=== PATIENT | male | born 1970 | race Two or more races ===

== ENCOUNTER 2017-04-16 09:56 | Emergency (ER) | payer MEDICARE, MEDICAID ==
[~2017-04-16] VITALS: Ht 165.1 cm; Wt 68.0 kg
[2017-04-16 09:58] VITALS: BP 111/91
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
[2017-04-16] MEDS ORDERED: UNOBMED (10:24)
[2017-04-16] MEDS: Bacitracin Oint 15gm Tube TOPIC SCH ×2 (10:31→12:55)
[2017-04-16 10:34] LABS: BASOPHILS % (AUTO) 0.6 % (0.0-2.0); LYMPHOCYTES % (AUTO) 10.6 % (20.0-45.0); MEAN CORPUSCULAR HEMOGLOBIN 31.7 PG (27.0-31.0); MEAN CORPUSCULAR HGB CONC 33.5 G/DL (32.0-36.0); MEAN CORPUSCULAR VOLUME 95 FL (80-99); MEAN PLATELET VOLUME 5.9 FL (6.5-10.1); MONOCYTES % (AUTO) 6.9 % (1.0-10.0); NEUTROPHILS % (AUTO) 81.9 % (45.0-75.0); PLATELET COUNT 248 K/UL (150-450); RED BLOOD COUNT 4.54 M/UL (4.70-6.10); RED CELL DISTRIBUTION WIDTH 11.6 % (11.6-14.8); WHITE BLOOD COUNT 6.8 K/UL (4.8-10.8)
[2017-04-16 10:45] LABS: ALANINE AMINOTRANSFERASE 18 U/L (3-41); ALBUMIN/GLOBULIN RATIO 1.2 (1.0-2.7); ANION GAP 14 (5-15); ASPARTATE AMINO TRANSFERASE 28 U/L (5-40); CALCIUM 9.3 mg/dL (8.6-10.2); CARBON DIOXIDE 23 mEQ/L (20-30); CHLORIDE 102 mEQ/L (98-107); CREATININE 0.9 mg/dL (0.7-1.2); GLOMERULAR FILTRATION RATE > 60 mL/min (>60); HEMOLYSIS 12; POTASSIUM 3.8 mEQ/L (3.4-4.9); SODIUM 139 mEQ/L (135-145); TOTAL PROTEIN 7.6 g/dL (6.6-8.7)
[2017-04-16 11:08] VITALS: BP 112/80
[2017-04-16 12:07] VITALS: BP 122/81
[2017-04-16 13:40] VITALS: BP 125/84
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
[2017-04-16] MEDS ORDERED: ZYPREXA10 MG ORAL (14:31)
[2017-04-16 15:30] VITALS: BP 125/84
--- NOTE | 2017-04-17 16:14 | Cardiology Report ---
APPROVED REPORT EKG Measurement Heart [id number] Sinus tachycardia Possible Left atrial enlargement Borderline ECG
== END 2017-04-16 15:30 | disposition home or self-care (01) ==
LOC: EDBD 09:56 → EMR 10:29
DX: S41.112A Laceration without foreign body of left upper arm, initial encounter (principal); S41.111A Laceration without foreign body of right upper arm, initial encounter; F20.9 Schizophrenia, unspecified; E11.9 Type 2 diabetes mellitus without complications; I10 Essential (primary) hypertension; X78.9XXA Intentional self-harm by unspecified sharp object, initial encounter; Y92.049 Unspecified place in boarding-house as the place of occurrence of the external cause
CPT/HCPCS: 36415; 80053; 80300; 85025; 93005; 96360